=== PATIENT | male | born 1995 | race African-American/Black ===

== ENCOUNTER 2022-03-11 09:52 | Emergency (ER) | payer SELFPAY ==
[2022-03-11 10:20] VITALS: BP 140/109; PULSE 81; RESP 12; TEMP 36.3; O2SAT 99
--- NOTE | 2022-03-11 11:56 | ED.GENADULT ---
HPI - General Adult General Chief complaint: Skin/Abscess/Foreign Body Stated complaint: hives, itching x 3 weeks Time Seen by Provider: 03/11/22 11:29 History of Present Illness HPI narrative: 26-year-old male presented to the emergency department for evaluation of intermittent urticarial rash. Patient states over the course of the last month he has had almost daily hives. Patient has not taken any medications for these, patient has not any Benadryl. Patient denies any breathing or swallowing difficulty. Patient denies any swelling of his tongue or lips. Patient reports no prior allergy history. Patient states he has no significant past medical history. Patient does not report any new colognes, perfumes, lotions, detergents, medications or foods. Related Data Home Medications Medication Instructions Recorded Confirmed No Home Medications 03/11/22 03/11/22 Allergies Allergy/AdvReac Type Severity Reaction Status Date / Time No Known Allergies Allergy Verified 03/11/22 12:20 Review of Systems Review of Systems: CONSTITUTIONAL: Denies fever, chills, or sweats. EYES: Denies visual changes, redness, or discharge. ENT: Denies rhinorrhea, congestion, sore throat, or otalgia. CARDIOVASCULAR: Denies chest pain, palpitations, or edema. RESPIRATORY: Denies cough or dyspnea. GASTROINTESTINAL: Denies abdominal pain, nausea, vomiting, or diarrhea. GENITOURINARY: Denies dysuria or hematuria. SKIN: See HPI MUSCULOSKELETAL: Denies back pain, joint pain, or myalgia. NEUROLOGIC: Denies headache, numbness, or weakness. Exam Narrative: APPEARANCE: Well appearing, no pain, no distress, well-nourished. HEAD: normocephalic, atraumatic. EYES: PERRLA/EOMI, conjunctivae clear. NOSE: Normal no drainage EARS:TMS clear with good light reflex. THROAT: Pharynx clear, no exudate. No swelling of tongue or lips. NECK: Supple. No adenopathy, no masses. RESPIRATORY: Airway patent, respirations nonlabored. Clear to auscultation bilaterally, no rales, rhonchi, wheezing. CARDIOVASCULAR: Regular rate and rhythm without murmurs rubs or gallops. ABDOMINAL: Soft, nontender, nondistended, normal bowel sounds MUSCULOSKELETAL: Moves all extremities. NEURO: Alert. Cranial nerves II through XII intact. Grossly intact SKIN: Urticarial rash on forearms. Patient also has photographs of a urticarial rash to his back and face. Course Course Emergency Course: Patient was updated on the plan for treatment at home and importance of close follow-up with his primary care physician and ultimately he may follow-up with an community assistant. Patient was educated on reasons to return to the emergency department. Vital Signs Vital signs: Vital Signs Temperature 97.3 F L 03/11/22 10:20 Pulse Rate 81 03/11/22 10:20 Respiratory Rate 12 03/11/22 10:20 Blood Pressure 140/109 H 03/11/22 10:20 Pulse Oximetry 99 03/11/22 10:20 Oxygen Delivery Room Air 03/11/22 10:20 Temperature 97.3 F L 03/11/22 10:20 Pulse Rate 81 03/11/22 10:20 Respiratory Rate 12 03/11/22 10:20 Blood Pressure 140/109 H 03/11/22 10:20 Pulse Oximetry 99 03/11/22 10:20 Oxygen Delivery Room Air 03/11/22 10:20 Medical Decision Making Vital Signs Vital Signs: Vital Signs Temperature 97.3 F L 03/11/22 10:20 Pulse Rate 81 03/11/22 10:20 Respiratory Rate 12 03/11/22 10:20 Blood Pressure 140/109 H 03/11/22 10:20 Pulse Oximetry 99 03/11/22 10:20 Oxygen Delivery Room Air 03/11/22 10:20 Temperature 97.3 F L 03/11/22 10:20 Pulse Rate 81 03/11/22 10:20 Respiratory Rate 12 03/11/22 10:20 Blood Pressure 140/109 H 03/11/22 10:20 Pulse Oximetry 99 03/11/22 10:20 Oxygen Delivery Room Air 03/11/22 10:20 Discharge Plan Discharge Clinical Impression: Urticaria Patient Disposition: Home, Self-Care Condition: Stable Instructions: Antibiotic Form, Contact Dermatitis (ED), Urticaria (ED) Additional Instructions: Continue B
[2022-03-11] MEDS: diphenhydrAMINE HCl CAP 25 MG CAPSULE PO (12:09)
== END 2022-03-11 12:15 | disposition home or self-care (01) ==
PROVIDERS: Emergency Provider Emergency Medicine
DX: L50.9 Urticaria, unspecified (principal)
CPT/HCPCS: 99282; A9270